=== PATIENT | male | born 1960 | race Caucasian/White ===

== ENCOUNTER 2017-10-13 05:24 | Inpatient (IN) | payer OTHER ==
[2017-10-12 16:01] VITALS: BMI 27.8
[~2017-10-13 05:24] MED LIST: BACITRACIN 50,000 UNITS VIAL TP ONE; BUPIVACAINE HCL/PF 0.5% (5MG/ML) 10 ML VIAL IJ ONE; GELATIN, ABSORBABLE 100 EACH SPONGE TP ONE; GENTAMICIN SO4 80 MG/2 ML VIAL IVPB ONE; LIDOCAINE 1%/EPI 1:100000 (20 ML MULTI DOSE VIAL) IJ ONE; THROMBIN (BOVINE) 5,000 UNIT VIAL TP ONE; ceFAZolin SODIUM 1 GM VIAL IVPB ONE
[2017-10-13] MEDS ORDERED: LIDOCAINE 1%/EPI 1:100000 (20 ML MULTI DOSE VIAL) ONE (10:55)
[2017-10-13] MEDS ORDERED: VANCOMYCIN 1,000 MG VIAL (RESTRICTED TO ID ONLY) ONE (10:55)
[2017-10-13] MEDS ORDERED: BUPIVACAINE HCL/PF 0.5% (5MG/ML) 10 ML VIAL ONE (10:56)
[2017-10-13] MEDS ORDERED: THROMBIN (BOVINE) 5,000 UNIT VIAL TP ONE ×2 (10:56→13:23)
[2017-10-13] MEDS ORDERED: GENTAMICIN SO4 80 MG/2 ML VIAL ONE ×2 (11:01→14:53)
[2017-10-13] MEDS ORDERED: ROCURONIUM BROMIDE 50 MG/5 ML VIAL ONE ×2 (11:31→12:46)
[2017-10-13] MEDS ORDERED: PROPOFOL 20 ML ONE ×4 (11:31)
[2017-10-13] MEDS ORDERED: fentaNYL CITRATE 250 MCG/5 ML VIAL ONE ×2 (11:31→12:49)
[2017-10-13] MEDS ORDERED: MIDAZOLAM HCL 2 MG/2 ML SINGLE DOSE VIAL ONE ×2 (11:31)
[2017-10-13] MEDS ORDERED: BACITRACIN 15 GM TUBE TOPICAL OINTMENT ONE (11:34)
[2017-10-13] MEDS ORDERED: LIDOCAINE 1%/EPI 1:100000 (20 ML MULTI DOSE VIAL) IJ ONE (12:40)
[2017-10-13] MEDS ORDERED: DEXAMETHASONE SOD PHOSPHATE 4 MG/1 ML VIAL ONE (12:42)
[2017-10-13] MEDS ORDERED: ceFAZolin SODIUM 1 GM VIAL ONE (12:42)
[2017-10-13] MEDS ORDERED: ceFAZolin SODIUM 1 GM VIAL IVPB ONE (12:42)
[2017-10-13] MEDS ORDERED: ONDANSETRON 4 MG/2 ML VIAL ONE ×2 (12:42→15:20)
[2017-10-13] MEDS ORDERED: MINERAL OIL/PETROLATUM,WHITE 3.5 GM TUBE ONE (12:42)
[2017-10-13] MEDS ORDERED: SEVOFLURANE 250 ML BTL ONE (12:53)
[2017-10-13] MEDS ORDERED: BUPIVACAINE HCL/PF 0.5% (5MG/ML) 10 ML VIAL IJ ONE (13:23)
[2017-10-13] MEDS ORDERED: BACITRACIN 50,000 UNITS VIAL TP ONE (13:23)
[2017-10-13] MEDS ORDERED: GENTAMICIN SO4 80 MG/2 ML VIAL IVPB ONE (13:23)
[2017-10-13] MEDS ORDERED: GELATIN, ABSORBABLE 100 EACH SPONGE TP ONE (13:23)
[2017-10-13] MEDS ORDERED: GLYCOPYRROLATE 0.2 MG/1 ML VIAL ONE (15:20)
[2017-10-13] MEDS ORDERED: NEOSTIGMINE METHYLSULFATE 0.5 MG/ML - 10 ML MDV ONE (15:20)
[2017-10-13] MEDS: LACTATED RINGERS SOLUTION 1,000 ML IV SCH ×2 (16:15→19:55)
--- NOTE | 2017-10-13 16:19 | OP ---
Operative Note - Note: Operative Date: 10/13/17 Pre-Operative Diagnosis: cervical stenosis, cervical kyphosis Operation: C2 thru C7 laminectomy with posterior fusion Surgeon: Chau Cabrera Algorithm Design Engineer: Yelitza Lin Anesthesiologist/SUPERVISOR BLOOMING MILL: Amanda Carney Anesthesia: General Estimated Blood Loss (mls): 300 Drains, Volume Out (mls): 400 (vences) Fluid Volume Replaced (mls): 2,900 Operative Report Dictated: Yes
[2017-10-13] MEDS ORDERED: ONDANSETRON 4 MG/2 ML VIAL IVPUSH PRN ×2 (16:20→16:31)
[2017-10-13] MEDS ORDERED: CYCLOBENZAPRINE HCL 5 MG TABLET PO PRN (16:31)
[2017-10-13] MEDS ORDERED: HYDROmorphone HCL CARPU-JECT 2 MG/1 ML DISP.SYRIN ONE (16:36)
[2017-10-13] MEDS ORDERED: LACTATED RINGERS SOLUTION 1,000 ML IV SCH (16:45)
[2017-10-13] MEDS: HYDROmorphone HCL CARPU-JECT 1 MG/1 ML DISP.SYRIN IVPUSH PRN ×2 (17:05→17:15)
[2017-10-13] MEDS: HYDROmorphone *PCA* 10MG/50ML DISP.SYRIN PCA SCH (17:19)
[2017-10-13] MEDS ORDERED: CYCLOBENZAPRINE HCL 10 MG TABLET (FP) PO PRN (19:56)
[2017-10-13] MEDS ORDERED: CEFAZOLIN 1 GM/D5W 50 ML IVPB SCH (21:00)
[2017-10-13] MEDS: PANTOPRAZOLE 20 MG TABLET (FP) PO SCH (21:07)
[2017-10-13] MEDS: CEFAZOLIN 1 GM PUSH 1 GM/10 ML DISP.SYRIN IVPUSH SCH (21:07)
[2017-10-13] MEDS: ATORVASTATIN CA 80 MG TABLET (FP) PO SCH (21:07)
[2017-10-13] MEDS: LISINOPRIL 20 MG TABLET (FP) PO SCH (21:07)
[2017-10-13] MEDS: AMITRIPTYLINE HCL 25 MG TABLET (FP) PO SCH (21:09)
[2017-10-13] MEDS: HEPARIN NA (PORCINE) 5,000 UNITS/ML 1ML VIAL SQ SCH (21:09)
[2017-10-13] MEDS: ACETAMINOPHEN 325 MG TABLET (FP) PO SCH (21:10)
[2017-10-14] MEDS ORDERED: diphenhydrAMINE HCL 25 MG CAPSULE (FP) PO PRN (01:55)
[2017-10-14] MEDS: CEFAZOLIN 1 GM PUSH 1 GM/10 ML DISP.SYRIN IVPUSH SCH ×2 (02:57→11:00)
[2017-10-14] MEDS: HEPARIN NA (PORCINE) 5,000 UNITS/ML 1ML VIAL SQ SCH ×2 (06:24→13:43)
[2017-10-14] MEDS: HYDROmorphone *PCA* 10MG/50ML DISP.SYRIN PCA SCH ×3 (06:29→16:04)
[2017-10-14] MEDS: LACTATED RINGERS SOLUTION 1,000 ML IV SCH ×3 (06:31→21:37)
[2017-10-14 08:11] LABS: BASOPHIL 0.3 % (0-2.0); MCH 30.5 pg (25.7-33.7); MCHC 34.2 g/dl (32.0-35.9); MEAN CELL VOLUME 89.2 fl (80-96); MEAN PLT VOLUME 8.9 fl (7.5-11.1); NEUTROPHILS 77.5 % (42.8-82.8); PLATELET COUNT 238 K/MM3 (134-434); RDW 12.5 % (11.9-15.9); WHITE BLOOD COUNT 14.6 K/mm3 (4.0-10.0)
[2017-10-14 08:22] LABS: ANION GAP 7 (8-16); CALCIUM 8.1 mg/dL (8.5-10.1); CO2 27 mmol/L (21-32); GLUCOSE,RANDOM 100 mg/dL (74-106)
[2017-10-14 08:25] LABS: CREATININE 0.8 mg/dL (0.7-1.3)
[2017-10-14] MEDS ORDERED: BENZOCAINE/MENTH/CETYLPYRD CL 1 EACH LOZENGE MM PRN (09:02)
[2017-10-14] MEDS ORDERED: PSEUDOEPHEDRINE HCL 30 MG TABLET PO PRN (09:04)
[2017-10-14] MEDS ORDERED: PT OWN MED DRAWER 7, Y5N ONE ×2 (09:21→21:33)
[2017-10-14] MEDS: ACETAMINOPHEN 325 MG TABLET (FP) PO SCH ×4 (09:28→21:36)
--- NOTE | 2017-10-14 09:31 | SURG ---
Surgery Carton Waxing Machine Operator Note Carton Waxing Machine Operator: Yelitza Lin PA-C Date of Service: 10/13/17 Diagnosis: cervical stenosis, cervcial kyphosis Procedure: C2-C7 laminectomy with posterior cervical fusion I was present for the entirety of the operative procedure. For further detail, please refer to operative report. Visit type - Case Type Case Type: Scheduled Admission - Emergency Emergency Visit: No - New patient This patient is new to me today: Yes Date on this admission: 10/13/17
--- NOTE | 2017-10-14 09:33 | PN ---
Progress Note (short form) - Note Progress Note: POD#1 No complaints of upper ext/lower ext tingling. He has some pain in his upper back. Vital Signs Period Temp Pulse Resp BP Sys/Antony Pulse Ox Last 24 Hr 98 F-99.4 F 81-100 10-20 125-170/74-94 97-100 NICOL-160ml serosangrenous Kuhn-1900ml, clear/yellow urine GEN: appears comfortable Neck: collar in place changed to regular from Tall [place]ain[place] J collar. Dressing c/d/ i with aquacel. Neuro: vacuum conditioner operator strength equal b/l, shoulder shrug equal b/l. 5/5 strength equal to upper ext b/l with flexion/extension LE: dorsi/plantar flexion 5/5 b/l, no calf tenderness or swelling noted b/l CBC, BMP 10/14/17 06:30 12/ 06:30 A/P: 57 yo male s/p C2-7 laminectomy with posterior spinal fusion Pt doing well this am, PT here for his therapy this am Sitting upright and eating his breakfast, collar in place Kuhn catheter removed this am Labs reviewed, cbc ordered for the am DVT ppx with TEDs/scd and heparin SQ
[2017-10-14] MEDS ORDERED: ACETAMINOPHEN 1000 MG/100 ML VIAL (NON FORMULARY) IVPB ONE (10:20)
--- NOTE | 2017-10-14 10:45 | PN ---
Progress Note, Physician Chief Complaint: Pt. having burning pain 10/10 in his neck, says FUSING MACHINE OPERATOR is not helping like yesterday. No GA complaints. - Current Medication List Current Medications: Active Medications Acetaminophen (Tylenol -) 650 mg PO QID [facility] Stop: 10/15/17 10:01 Last Admin: 10/14/17 09:28 Dose: 650 mg Acetaminophen (Ofirmev Injection -) 1,000 mg IVPB ONCE ONE Stop: 10/14/17 10:21 Amitriptyline HCl (Elavil -) 50 mg PO HS [facility] Last Admin: 10/13/17 21:09 Dose: 50 mg Atorvastatin Calcium (Lipitor -) 80 mg PO HS [facility] Last Admin: 10/13/17 21:07 Dose: 80 mg Benzocaine/Menthol (Cepacol Lozenge -) 1 each MM PRN PRN PRN Reason: SORE THROAT Calcium Carbonate (Calcium Carbonate -) 2,400 mg PO DAILY [facility] Cyclobenzaprine HCl (Flexeril -) 5 mg PO BID PRN PRN Reason: BACK PAIN Last Admin: 10/13/17 21:09 Dose: 5 mg Diphenhydramine HCl (Benadryl -) 50 mg PO HS PRN Last Admin: 10/14/17 02:04 Dose: 50 mg Heparin Sodium (Porcine) (Heparin -) 5,000 unit SQ TID [facility] Last Admin: 10/14/17 06:24 Dose: 5,000 unit Hydromorphone HCl (Dilaudid Database Software Technician -) 10 mg FUSING MACHINE OPERATOR FUSING MACHINE OPERATOR [facility] PRN Reason: Protocol Stop: 10/16/17 16:31 Lactated Ringer's (Lactated Ringers Solution) 1,000 mls @ 125 mls/hr IV ASDIR [facility] Last Admin: 10/14/17 06:31 Dose: 125 mls/hr Cefazolin Sodium (Ancef -) 1 gm in 10 mls @ 120 mls/hr IVPUSH Q8H-IV [facility] Stop: 10/14/17 17:59 Last Admin: 10/14/17 02:57 Dose: 120 mls/hr Lisinopril (Prinivil) 20 mg PO HS [facility] Last Admin: 10/13/17 21:07 Dose: 20 mg Ondansetron HCl (Zofran Injection) 4 mg IVPUSH Q6H PRN PRN Reason: NAUSEA AND/OR VOMITING Pantoprazole Sodium (Protonix -) 20 mg PO HS [facility] Last Admin: 10/13/17 21:07 Dose: 20 mg Pseudoephedrine HCl (Sudafed -) 60 mg PO DAILY PRN PRN Reason: allergies - Objective Vital Signs: Vital Signs Temperature 98.2 F 10/14/17 08:00 Pulse Rate 93 H 10/14/17 08:00 Respiratory Rate 18 10/14/17 08:00 Blood Pressure 137/80 10/14/17 08:00 O2 Sat by Pulse Oximetry (%) 99 10/14/17 08:59 Constitutional: Yes: Well Nourished, No Distress, Calm Neurological: Yes: WNL, Alert, Oriented ...Motor Strength: WNL Labs: CBC, BMP 10/14/17 06:30 10/14/17 06:30 Assessment/Plan POD#1 s/p C2-7 Cervical fusion under GA. Increase FUSING MACHINE OPERATOR dose to 0.4 q6 min lockout. Start Ofirmev 1 dose 6 hours after last oral tylenol. Will follow up tomorrow
--- NOTE | 2017-10-14 11:01 | HP ---
Admitting History and Physical - Primary Care Physician PCP: Leidy Calderon - Admission Chief Complaint: Cervical Spinal stenosis, s/p Laminectomy History of Present Illness: Mr Gonzalez is a pleasant 57 year old man that is a resident of [place], who came to [facility] for Neurosurgery consult and planned surgery with Chau James MD. He is S/P Laminectomy POD #1. History Source: Patient, Significant Other () Limitations to Obtaining History: Clinical Condition - Past Medical History Cardiovascular: Yes: HTN, Hyperlipdemia Gastrointestinal: Yes: GERD Musculoskeletal: Yes: Chronic low back pain, Other (Cervical spinal stenosis) - Past Surgical History Additional Past Surgical History: Rhinoplasty - Advance Directives Advance Directives: Yes: Health Care Proxy - Smoking History Smoking history: Never smoked Have you smoked in the past 12 months: No - Alcohol/Substance Use Hx Alcohol Use: Yes (rare) - Social History Usual Living Arrangement: Yes: With Spouse ADL: Independent History of Recent Travel: No Home Medications - Allergies Allergies/Adverse Reactions: Allergies Allergy/AdvReac Type Severity Reaction Status Date / Time iodine Allergy Severe Swelling Verified 10/12/17 15:56 - Home Medications Home Medications: Ambulatory Orders Amitriptyline HCl [Elavil -] 50 mg PO HS 10/12/17 Aspirin Coated [Ecotrin -] 81 mg PO HS 10/12/17 Atorvastatin Ca [Lipitor] 80 mg PO HS 10/12/17 Calcium Carbonate - 2,400 mg PO DAILY 10/12/17 Cholecalciferol (Vitamin D3) [Vitamin D3 -] 1,000 unit PO DAILY 10/12/17 Diphenhydramine [Benadryl -] 50 mg PO DAILY PRN 10/12/17 Flaxseed Oil [Flaxseed] 1,000 mg PO DAILY 10/12/17 Lisinopril [Prinivil] 20 mg PO HS 10/12/17 Omeprazole 20 mg PO HS 10/12/17 Pseudoephedrine HCl [Sudafed] 60 mg PO DAILY PRN 10/12/17 Tizanidine HCl 4 mg PO Q8H PRN 10/12/17 Tramadol HCl 50 mg PO BID PRN 10/12/17 Family Disease History - Family Disease History Family Disease History: Other: Father ([place], cardiac stents), Mother (COPD,HTN,HL) , Brother (2 brothers- no known medical history), Daughter (1 daughter, no known medical history) Review of Systems Findings/Remarks: sitting in chair, in severe pain, had the neck collar on. Pain improved upon removal of neck collar, ice applied WINDLASSER mildly effective - Review of Systems Constitutional: reports: No Symptoms Eyes: reports: No Symptoms HENT: reports: No Symptoms Neck: reports: Decreased ROM, Pain on Movement Cardiovascular: reports: No Symptoms Respiratory: reports: No Symptoms Gastrointestinal: reports: No Symptoms Genitourinary: reports: No Symptoms Breasts: reports: No Symptoms Reported Musculoskeletal: reports: No Symptoms Integumentary: reports: No Symptoms Neurological: reports: No Symptoms Endocrine: reports: No Symptoms Hematology/Lymphatic: reports: No Symptoms Psychiatric: reports: No Symptoms Pain Intensity: 9 (at the surgical site) Physical Examination Vital Signs: Vital Signs Temperature 98.2 F 10/14/17 08:00 Pulse Rate 93 H 10/14/17 08:00 Respiratory Rate 18 10/14/17 08:00 Blood Pressure 137/80 10/14/17 08:00 O2 Sat by Pulse Oximetry (%) 99 10/14/17 08:59 Constitutional: Yes: Well Nourished, No Distress, Calm Neck: Yes: Decreased ROM (s/p Laminectomy) Cardiovascular: Yes: Regular Rate and Rhythm Respiratory: Yes: Regular Gastrointestinal: Yes: Normal Bowel Sounds Musculoskeletal: Yes: WNL Extremities: Yes: WNL Edema: No Peripheral Pulses WNL: Yes Wound/Incision: Yes: Dressing Dry and Intact Neurological: Yes: Alert, Oriented Psychiatric: Yes: Alert, Oriented Labs: CBC, BMP 10/14/17 06:30 10/14/17 06:30 Imaging - Results Cat Scan: Report Reviewed Problem List - Problems (1) Cervical spinal stenosis Code(s): M48.02 - SPINAL STENOSIS, CERVICAL REGION (2) S/P laminectomy Assessment/Plan: -ice -WINDLASSER dosage adjusted by Anesthesia -Added gabapentin -tylenol -neck brace once pain is better controlled -Also on myscle relaxers PRN, would change to standing for now -will follow with Neurosurgery Code(s): Z98.890 - OTHER SPECIFIED POSTPROCEDURAL STATES (3) Leukocytosis Assessment/Plan: -likely post inflammatory response -repeat in AM Code(s): D72.829 - ELEVATED WHITE BLOOD CELL COUNT, UNSPECIFIED Assessment/Plan see problem list
[2017-10-14] MEDS: CALCIUM CARBONATE 650 MG TABLET PO SCH (11:39)
[2017-10-14] MEDS: GABAPENTIN 300 MG CAPSULE (FP) PO SCH ×2 (11:40→21:35)
[2017-10-14] MEDS: ATORVASTATIN CA 80 MG TABLET (FP) PO SCH (21:35)
[2017-10-14] MEDS: AMITRIPTYLINE HCL 25 MG TABLET (FP) PO SCH (21:35)
[2017-10-14] MEDS: CYCLOBENZAPRINE HCL 10 MG TABLET (FP) PO SCH (21:35)
[2017-10-14] MEDS: PANTOPRAZOLE 20 MG TABLET (FP) PO SCH (21:35)
[2017-10-14] MEDS: LISINOPRIL 20 MG TABLET (FP) PO SCH (21:36)
[2017-10-15] MEDS: GABAPENTIN 300 MG CAPSULE (FP) PO SCH ×3 (06:00→21:20)
[2017-10-15] MEDS: HEPARIN NA (PORCINE) 5,000 UNITS/ML 1ML VIAL SQ SCH ×4 (06:00→21:20)
[2017-10-15] MEDS: LACTATED RINGERS SOLUTION 1,000 ML IV SCH ×3 (06:16→16:54)
[2017-10-15 08:16] LABS: BASOPHIL 0.4 % (0-2.0); EOSINOPHIL 0.1 % (0-4.5); MCH 30.9 pg (25.7-33.7); MEAN CELL VOLUME 90.8 fl (80-96); MEAN PLT VOLUME 8.9 fl (7.5-11.1); NEUTROPHILS 76.3 % (42.8-82.8); PLATELET COUNT 192 K/MM3 (134-434); RDW 12.6 % (11.9-15.9); WHITE BLOOD COUNT 13.9 K/mm3 (4.0-10.0)
[2017-10-15 08:27] LABS: ALBUMIN 3.2 g/dl (3.4-5.0); ANION GAP 6 (8-16); CALCIUM 8.9 mg/dL (8.5-10.1); CO2 32 mmol/L (21-32); GLUCOSE,RANDOM 111 mg/dL (74-106); SGOT/AST 49 U/L (15-37); SGPT/ALT 33 U/L (12-78)
[2017-10-15 08:30] LABS: ALK PHOS 85 U/L (45-117); BILIRUBIN,TOTAL 1.9 mg/dL (0.2-1.0); TOT PROT 5.9 g/dl (6.4-8.2)
--- NOTE | 2017-10-15 09:10 | PN ---
Progress Note (short form) - Note Progress Note: Anesthesia Post op Pt seen and examined S:awake and alert O: Vital Signs Temperature 98.2 F 10/15/17 09:05 Pulse Rate 108 H 10/15/17 09:05 Respiratory Rate 18 10/15/17 09:05 Blood Pressure 98/51 10/15/17 09:05 O2 Sat by Pulse Oximetry (%) 98 10/14/17 21:00 CBC, BMP 10/15/17 06:00 10/15/17 06:00 A/P:s/p cervical fusion Doing well post op pain controlled but wants to keep ORACLE IDENTITY MANAGEMENT CONSULTANT for pain control Continue current care Raghav Foley MD
[2017-10-15] MEDS: CALCIUM CARBONATE 650 MG TABLET PO SCH (10:26)
[2017-10-15] MEDS: CYCLOBENZAPRINE HCL 10 MG TABLET (FP) PO SCH ×2 (10:36→21:20)
[2017-10-15] MEDS: HYDROmorphone *PCA* 10MG/50ML DISP.SYRIN PCA SCH ×2 (10:36→21:55)
[2017-10-15] MEDS: ACETAMINOPHEN 325 MG TABLET (FP) PO SCH (10:37)
--- NOTE | 2017-10-15 13:49 | PN ---
Progress Note, Physician Chief Complaint: SITTING IN CHAIR NAD VISITOR INFORMATION ASSISTANT IN USE THIS IS MY FIRST ENCOUNTER WITH THIS PATIENT CHART AND NOTES REVIEWED - Current Medication List Current Medications: Active Medications Amitriptyline HCl (Elavil -) 50 mg PO HS [facility] Last Admin: 10/14/17 21:35 Dose: 50 mg Atorvastatin Calcium (Lipitor -) 80 mg PO HS [facility] Last Admin: 10/14/17 21:35 Dose: 80 mg Benzocaine/Menthol (Cepacol Lozenge -) 1 each MM PRN PRN PRN Reason: SORE THROAT Calcium Carbonate (Calcium Carbonate -) 2,400 mg PO DAILY [facility] Last Admin: 10/15/17 10:26 Dose: 2,400 mg Cyclobenzaprine HCl (Flexeril -) 5 mg PO BID [facility] Last Admin: 10/15/17 10:36 Dose: Not Given Diphenhydramine HCl (Benadryl -) 50 mg PO HS PRN Last Admin: 10/14/17 02:04 Dose: 50 mg Gabapentin (Neurontin -) 300 mg PO TID [facility] Last Admin: 10/15/17 06:00 Dose: 300 mg Heparin Sodium (Porcine) (Heparin -) 5,000 unit SQ TID [facility] Last Admin: 10/15/17 06:15 Dose: 5,000 unit Hydromorphone HCl (Dilaudid Aircraft Power Plant Assembler -) 10 mg VISITOR INFORMATION ASSISTANT VISITOR INFORMATION ASSISTANT [facility] PRN Reason: Protocol Stop: 10/16/17 16:31 Last Admin: 10/15/17 10:36 Dose: 10 mg Lactated Ringer's (Lactated Ringers Solution) 1,000 mls @ 125 mls/hr IV ASDIR [facility] Last Admin: 10/15/17 06:16 Dose: 125 mls/hr Lisinopril (Prinivil) 20 mg PO [facility] Last Admin: 10/14/17 21:36 Dose: 20 mg Ondansetron HCl (Zofran Injection) 4 mg IVPUSH Q6H PRN PRN Reason: NAUSEA AND/OR VOMITING Pantoprazole Sodium (Protonix -) 20 mg PO HS [facility] Last Admin: 10/14/17 21:35 Dose: 20 mg Pseudoephedrine HCl (Sudafed -) 60 mg PO DAILY PRN PRN Reason: allergies - Objective Vital Signs: Vital Signs Temperature 98.2 F 10/15/17 09:05 Pulse Rate 108 H 10/15/17 10:36 Respiratory Rate 18 10/15/17 10:36 Blood Pressure 98/51 10/15/17 10:36 O2 Sat by Pulse Oximetry (%) 98 10/14/17 21:00 Constitutional: Yes: No Distress, Mild Distress Eyes: Yes: WNL HENT: Yes: WNL Neck: Yes: WNL Cardiovascular: Yes: WNL Respiratory: Yes: WNL Gastrointestinal: Yes: WNL Genitourinary: Yes: WNL Musculoskeletal: Yes: Back Pain, Joint Stiffness, Muscle Pain, Muscle Weakness Extremities: Yes: WNL Edema: No Peripheral Pulses WNL: Yes Integumentary: Yes: WNL Wound/Incision: Yes: Dressing Dry and Intact Neurological: Yes: Pre-Existing Deficit ...Motor Strength: LUE, LLE, RUE, RLE Psychiatric: Yes: WNL Labs: CBC, BMP 10/15/17 06:00 10/15/17 06:00 Problem List - Problems (1) Cervical spinal stenosis Code(s): M48.02 - SPINAL STENOSIS, CERVICAL REGION (2) S/P laminectomy Code(s): Z98.890 - OTHER SPECIFIED POSTPROCEDURAL STATES (3) Urinary retention Code(s): R33.9 - RETENTION OF URINE, UNSPECIFIED Assessment/Plan PAIN CONTROL DVT PROPHYLAXIS PT EVAL [facility] RE[facility]ED FOR RETENTION
[2017-10-15] MEDS: TAMSULOSIN HCL 0.4 MG CAP.ER.24H (FP) PO SCH (17:54)
[2017-10-15] MEDS: AMITRIPTYLINE HCL 25 MG TABLET (FP) PO SCH (21:20)
[2017-10-15] MEDS: LISINOPRIL 20 MG TABLET (FP) PO SCH (21:20)
[2017-10-15] MEDS: PANTOPRAZOLE 20 MG TABLET (FP) PO SCH (21:20)
[2017-10-15] MEDS: ATORVASTATIN CA 80 MG TABLET (FP) PO SCH (21:20)
[2017-10-16] MEDS: ACETAMINOPHEN 325 MG TABLET (FP) PO PRN ×3 (02:37→19:55)
[2017-10-16] MEDS: HEPARIN NA (PORCINE) 5,000 UNITS/ML 1ML VIAL SQ SCH ×3 (06:08→21:28)
[2017-10-16] MEDS: GABAPENTIN 300 MG CAPSULE (FP) PO SCH ×3 (06:08→21:27)
[2017-10-16] MEDS: CALCIUM CARBONATE 650 MG TABLET PO SCH (09:58)
[2017-10-16] MEDS: TAMSULOSIN HCL 0.4 MG CAP.ER.24H (FP) PO SCH (09:58)
[2017-10-16] MEDS: CYCLOBENZAPRINE HCL 10 MG TABLET (FP) PO SCH ×2 (09:58→21:27)
[2017-10-16] MEDS: HYDROmorphone *PCA* 10MG/50ML DISP.SYRIN PCA SCH (10:29)
--- NOTE | 2017-10-16 11:06 | PN ---
Progress Note (short form) - Note Progress Note: POD #3 - s/p cervical fusion. On dilaudid MECHANICAL ENERGY ENGINEER for post-op pain management. Overall, pain control has been good. Will discontinue MECHANICAL ENERGY ENGINEER today and order po oxycodone. Continue current care.
[2017-10-16] MEDS: oxyCODONE HCL 5 MG TABLET PO PRN ×3 (11:43→19:54)
--- NOTE | 2017-10-16 12:01 | PN ---
Progress Note, Physician Chief Complaint: AWAKE DROWSY BEDSIDE PRINCESS STILL MAINTAINED - Current Medication List Current Medications: Active Medications Acetaminophen (Tylenol -) 650 mg PO Q8H PRN PRN Reason: FEVER OR PAIN Last Admin: 10/16/17 11:44 Dose: 650 mg Amitriptyline HCl (Elavil -) 50 mg PO [facility] Last Admin: 10/15/17 21:20 Dose: 50 mg Atorvastatin Calcium (Lipitor -) 80 mg PO [facility] Last Admin: 10/15/17 21:20 Dose: 80 mg Benzocaine/Menthol (Cepacol Lozenge -) 1 each MM PRN PRN PRN Reason: SORE THROAT Calcium Carbonate (Calcium Carbonate -) 2,400 mg PO DAILY [facility] Last Admin: 10/16/17 09:58 Dose: 2,400 mg Cyclobenzaprine HCl (Flexeril -) 5 mg PO BID [facility] Last Admin: 10/16/17 09:58 Dose: 5 mg Diphenhydramine HCl (Benadryl -) 50 mg PO HS [facility] Last Admin: 10/14/17 02:04 Dose: 50 mg Gabapentin (Neurontin -) 300 mg PO TID [facility] Last Admin: 10/16/17 06:08 Dose: 300 mg Heparin Sodium (Porcine) (Heparin -) 5,000 unit SQ TID [facility] Last Admin: 10/16/17 06:08 Dose: 5,000 unit Lactated Ringer's (Lactated Ringers Solution) 1,000 mls @ 42 mls/hr IV ASDIR [facility] Last Admin: 10/15/17 16:54 Dose: 42 mls/hr Lisinopril (Prinivil) 20 mg PO [facility] Last Admin: 10/15/17 21:20 Dose: 20 mg Ondansetron HCl (Zofran Injection) 4 mg IVPUSH Q6H PRN PRN Reason: NAUSEA AND/OR VOMITING Oxycodone HCl (Roxicodone -) 5 mg PO Q4H PRN PRN Reason: PAIN Last Admin: 10/16/17 11:43 Dose: 5 mg Oxycodone HCl (Roxicodone -) 10 mg PO Q4H PRN PRN Reason: PAIN Pantoprazole Sodium (Protonix -) 20 mg PO [facility] Last Admin: 10/15/17 21:20 Dose: 20 mg Pseudoephedrine HCl (Sudafed -) 60 mg PO DAILY PRN PRN Reason: allergies Tamsulosin HCl (Flomax -) 0.4 mg PO DAILY@0830 [facility] Last Admin: 10/16/17 09:58 Dose: 0.4 mg - Objective Vital Signs: Vital Signs Temperature 99.7 F H 10/16/17 09:12 Pulse Rate 106 H 10/16/17 11:29 Respiratory Rate 20 10/16/17 11:29 Blood Pressure 116/60 10/16/17 11:29 O2 Sat by Pulse Oximetry (%) 96 10/15/17 21:00 Constitutional: Yes: Mild Distress Eyes: Yes: WNL HENT: Yes: WNL Neck: Yes: Tenderness Cardiovascular: Yes: WNL Respiratory: Yes: WNL Gastrointestinal: Yes: WNL Genitourinary: Yes: Sánchez Present Musculoskeletal: Yes: Muscle Weakness Extremities: Yes: Other Edema: No Peripheral Pulses WNL: Yes Integumentary: Yes: WNL Wound/Incision: Yes: Dressing Dry and Intact Neurological: Yes: Pre-Existing Deficit ...Motor Strength: LUE, LLE, RUE, RLE Psychiatric: Yes: Other Labs: CBC, BMP 10/15/17 06:00 10/15/17 06:00 Problem List - Problems (1) Cervical spinal stenosis Code(s): M48.02 - SPINAL STENOSIS, CERVICAL REGION (2) S/P laminectomy Code(s): Z98.890 - OTHER SPECIFIED POSTPROCEDURAL STATES (3) Urinary retention Code(s): R33.9 - RETENTION OF URINE, UNSPECIFIED Assessment/Plan PAIN CONTROL PER ANESTHESIA REMOTE MORTGAGE UNDERWRITER STOPPED OXYCODONE PRN DVT PROPHYLAXIS PT EVAL INCENTIVE SPIROMETRY [facility] RE[facility]ED FOR RETENTION FLOMAX STARTED FOR URINARY RETENTION
[2017-10-16] MEDS: LACTATED RINGERS SOLUTION 1,000 ML IV SCH (17:06)
--- NOTE | 2017-10-16 19:19 | PN ---
Progress Note (short form) - Note Progress Note: Patient resting in bed. Afebrile now, however, earlier fever noted. Cultures negative to date. Patient describes interval improvement in back and leg pains after surgery and incisional/drain site pain is abating. Now off BARTENDER MANAGER with some increase in pain. Will re-evaluate in AM. Patient will have vences removed at 0600 and nursing will check a post void residual. Will likely have PA team remove NICOL in morning. If patient continues to be afebrile and his pain is well controlled with oral medications, will plan for discharge soon. All questions answered.
[2017-10-16] MEDS: AMITRIPTYLINE HCL 25 MG TABLET (FP) PO SCH (21:27)
[2017-10-16] MEDS: ATORVASTATIN CA 80 MG TABLET (FP) PO SCH (21:27)
[2017-10-16] MEDS: LISINOPRIL 20 MG TABLET (FP) PO SCH (21:28)
[2017-10-16] MEDS: PANTOPRAZOLE 20 MG TABLET (FP) PO SCH (21:28)
[2017-10-17] MEDS: oxyCODONE HCL 5 MG TABLET PO PRN ×5 (01:58→19:15)
[2017-10-17] MEDS: HEPARIN NA (PORCINE) 5,000 UNITS/ML 1ML VIAL SQ SCH ×3 (05:43→22:08)
[2017-10-17] MEDS: GABAPENTIN 300 MG CAPSULE (FP) PO SCH ×3 (05:43→22:08)
[2017-10-17] MEDS: ACETAMINOPHEN 325 MG TABLET (FP) PO PRN (05:44)
[2017-10-17] MEDS: ACETAMINOPHEN 325 MG TABLET (FP) PO SCH (07:42)
[2017-10-17] MEDS: TAMSULOSIN HCL 0.4 MG CAP.ER.24H (FP) PO SCH (08:38)
[2017-10-17] MEDS: CALCIUM CARBONATE 650 MG TABLET PO SCH (09:03)
[2017-10-17] MEDS: CYCLOBENZAPRINE HCL 10 MG TABLET (FP) PO SCH ×2 (09:05→22:07)
--- NOTE | 2017-10-17 10:35 | PN ---
Progress Note, Physician Chief Complaint: s/p cervical spine laminectomy History of Present Illness: NAD, in bed Pain 04/23 -no complains of tingling or numbness at this time, intermittent -no BM since admission -Walked with physical therapy -Vences discontinue, urinated post vences -Surgical site drain intact, still draining moderate serosanguiness fluid. - Current Medication List Current Medications: Active Medications Acetaminophen (Tylenol -) 650 mg PO Q8H PRN PRN Reason: FEVER OR PAIN Last Admin: 10/17/17 05:44 Dose: 650 mg Amitriptyline HCl (Elavil -) 50 mg PO HS [facility] Last Admin: 10/16/17 21:27 Dose: 50 mg Atorvastatin Calcium (Lipitor -) 80 mg PO HS [facility] Last Admin: 10/16/17 21:27 Dose: 80 mg Benzocaine/Menthol (Cepacol Lozenge -) 1 each MM PRN PRN PRN Reason: SORE THROAT Calcium Carbonate (Calcium Carbonate -) 2,400 mg PO DAILY [facility] Last Admin: 10/17/17 09:03 Dose: 2,400 mg Cyclobenzaprine HCl (Flexeril -) 5 mg PO BID [facility] Last Admin: 10/17/17 09:05 Dose: 5 mg Diphenhydramine HCl (Benadryl -) 50 mg PO HS [facility] Last Admin: 10/14/17 02:04 Dose: 50 mg Gabapentin (Neurontin -) 300 mg PO TID [facility] Last Admin: 10/17/17 05:43 Dose: 300 mg Heparin Sodium (Porcine) (Heparin -) 5,000 unit SQ TID [facility] Last Admin: 10/17/17 05:43 Dose: 5,000 unit Lactated Ringer's (Lactated Ringers Solution) 1,000 mls @ 42 mls/hr IV ASDIR [facility] Last Admin: 10/16/17 17:06 Dose: Not Given Lisinopril (Prinivil) 20 mg PO HS [facility] Last Admin: 10/16/17 21:28 Dose: 20 mg Ondansetron HCl (Zofran Injection) 4 mg IVPUSH Q6H PRN PRN Reason: NAUSEA AND/OR VOMITING Oxycodone HCl (Roxicodone -) 5 mg PO Q4H PRN PRN Reason: PAIN Last Admin: 10/16/17 11:43 Dose: 5 mg Oxycodone HCl (Roxicodone -) 10 mg PO Q4H PRN PRN Reason: PAIN Last Admin: 10/17/17 05:45 Dose: 10 mg Pantoprazole Sodium (Protonix -) 20 mg PO HS [facility] Last Admin: 10/16/17 21:28 Dose: 20 mg Pseudoephedrine HCl (Sudafed -) 60 mg PO DAILY PRN PRN Reason: allergies Tamsulosin HCl (Flomax -) 0.4 mg PO DAILY@0830 [facility] Last Admin: 10/17/17 08:38 Dose: 0.4 mg - Objective Vital Signs: Vital Signs Temperature 98.3 F 10/17/17 05:32 Pulse Rate 98 H 10/17/17 05:32 Respiratory Rate 20 10/17/17 05:32 Blood Pressure 135/80 10/17/17 05:32 O2 Sat by Pulse Oximetry (%) 95 10/16/17 21:00 Constitutional: Yes: Well Nourished, No Distress, Calm Neck: Yes: Decreased ROM (s/p cervical laminectomy) Cardiovascular: Yes: Regular Rate and Rhythm Respiratory: Yes: Regular Gastrointestinal: Yes: Normal Bowel Sounds, Soft Musculoskeletal: Yes: WNL Extremities: Yes: WNL Edema: No Peripheral Pulses WNL: Yes Neurological: Yes: Alert, Oriented Psychiatric: Yes: Alert, Oriented Labs: CBC, BMP 10/15/17 06:00 10/15/17 06:00 Problem List - Problems (1) Cervical spinal stenosis Code(s): M48.02 - SPINAL STENOSIS, CERVICAL REGION (2) S/P laminectomy Assessment/Plan: -ice -gabapentin -tylenol -neck brace -on muscle relaxers standing order -will follow with Neurosurgery -seen by Physical therapy, self ambulatory with minimal assistance Code(s): Z98.890 - OTHER SPECIFIED POSTPROCEDURAL STATES (3) Leukocytosis Assessment/Plan: -likely post inflammatory response -repeat labs today Code(s): D72.829 - ELEVATED WHITE BLOOD CELL COUNT, UNSPECIFIED (4) Constipation Assessment/Plan: -takes Metamucil outpatient -miralax x 1 -Metamucil daily Code(s): K59.00 - CONSTIPATION, UNSPECIFIED (5) Urinary retention Assessment/Plan: -vences discontinued -voided spontaneously -on Tamsulosin Code(s): R33.9 - RETENTION OF URINE, UNSPECIFIED Assessment/Plan see problem list -Likely D/C in AM if cleared by Neurosurgery
[2017-10-17] MEDS ORDERED: POLYETHYLENE GLYCOL 3350 119 GM BTL PO ONE (10:37)
[2017-10-17 11:21] LABS: BASOPHIL 0.8 % (0-2.0); EOSINOPHIL 3.1 % (0-4.5); MCH 30.6 pg (25.7-33.7); MCHC 34.3 g/dl (32.0-35.9); MEAN CELL VOLUME 89.2 fl (80-96); MEAN PLT VOLUME 8.4 fl (7.5-11.1); NEUTROPHILS 61.8 % (42.8-82.8); PLATELET COUNT 218 K/MM3 (134-434); RDW 12.5 % (11.9-15.9); WHITE BLOOD COUNT 9.5 K/mm3 (4.0-10.0)
[2017-10-17 11:35] LABS: ALBUMIN 3.1 g/dl (3.4-5.0); ANION GAP 6 (8-16); CALCIUM 8.4 mg/dL (8.5-10.1); CO2 33 mmol/L (21-32); CREATININE 0.7 mg/dL (0.7-1.3); GLUCOSE,RANDOM 115 mg/dL (74-106); SGOT/AST 64 U/L (15-37); SGPT/ALT 39 U/L (12-78)
[2017-10-17 11:37] LABS: ALK PHOS 84 U/L (45-117); BILIRUBIN,TOTAL 1.2 mg/dL (0.2-1.0); TOT PROT 6.1 g/dl (6.4-8.2)
--- NOTE | 2017-10-17 14:56 | PN ---
Progress Note (short form) - Note Progress Note: Patient seen at bedside. Posterior cervical NICOL drain removed with tip fully intact. 20cc of serosanginous d/c in bulb at time of removal. The patient tolerated the procedure well and the drain site was dressed with a 4x4 and op site.
--- NOTE | 2017-10-17 18:23 | PN ---
Progress Note (short form) - Note Progress Note: Patient continues to have some discomfort since his PROFESSOR OF PRACTICE was discontinued, but is otherwise doing well. Incisional pain is abating and patient is ambulating with assistance. NICOL removed. All questions answered. PLAN - check CBC in AM - follow cultures/Tmax - continue Cervical collar - continue Physical Therapy - check voiding after vences removal - continue pain medication - If patient doing well in AM, will consider discharge
[2017-10-17] MEDS ORDERED: diazePAM 5 MG TABLET PO ONE (21:45)
[2017-10-17] MEDS: ATORVASTATIN CA 80 MG TABLET (FP) PO SCH (22:08)
[2017-10-17] MEDS: LISINOPRIL 20 MG TABLET (FP) PO SCH (22:08)
[2017-10-17] MEDS: PANTOPRAZOLE 20 MG TABLET (FP) PO SCH (22:08)
[2017-10-17] MEDS: AMITRIPTYLINE HCL 25 MG TABLET (FP) PO SCH (22:11)
[2017-10-18] MEDS: oxyCODONE HCL 5 MG TABLET PO PRN ×2 (03:47→09:23)
[2017-10-18] MEDS ORDERED: PSEUDOEPHEDRINE HCL 60 MG TABLET PO PRN (04:24)
[2017-10-18] MEDS: HEPARIN NA (PORCINE) 5,000 UNITS/ML 1ML VIAL SQ SCH ×3 (05:45→21:04)
[2017-10-18] MEDS: GABAPENTIN 300 MG CAPSULE (FP) PO SCH ×3 (05:45→21:04)
--- NOTE | 2017-10-18 09:17 | PN ---
Progress Note, Physician History of Present Illness: C/O NECK PAIN AND SPASM - Current Medication List Current Medications: Active Medications Acetaminophen (Tylenol -) 650 mg PO Q8H PRN PRN Reason: FEVER OR PAIN Last Admin: 10/17/17 05:44 Dose: 650 mg Amitriptyline HCl (Elavil -) 50 mg PO [facility] Last Admin: 10/17/17 22:11 Dose: 50 mg Atorvastatin Calcium (Lipitor -) 80 mg PO [facility] Last Admin: 10/17/17 22:08 Dose: 80 mg Benzocaine/Menthol (Cepacol Lozenge -) 1 each MM PRN PRN PRN Reason: SORE THROAT Calcium Carbonate (Calcium Carbonate -) 2,400 mg PO DAILY [facility] Last Admin: 10/17/17 09:03 Dose: 2,400 mg Cyclobenzaprine HCl (Flexeril -) 10 mg PO TID [facility] Diphenhydramine HCl (Benadryl -) 50 mg PO HS PRN Last Admin: 10/14/17 02:04 Dose: 50 mg Gabapentin (Neurontin -) 300 mg PO TID [facility] Last Admin: 10/18/17 05:45 Dose: 300 mg Heparin Sodium (Porcine) (Heparin -) 5,000 unit SQ TID [facility] Last Admin: 10/18/17 05:45 Dose: 5,000 unit Lactated Ringer's (Lactated Ringers Solution) 1,000 mls @ 42 mls/hr IV ASDIR [facility] Last Admin: 10/16/17 17:06 Dose: Not Given Lisinopril (Prinivil) 20 mg PO [facility] Last Admin: 10/17/17 22:08 Dose: 20 mg Ondansetron HCl (Zofran Injection) 4 mg IVPUSH Q6H PRN PRN Reason: NAUSEA AND/OR VOMITING Oxycodone HCl (Roxicodone -) 5 mg PO Q4H PRN PRN Reason: PAIN Last Admin: 10/17/17 15:47 Dose: 5 mg Oxycodone HCl (Roxicodone -) 10 mg PO Q4H PRN PRN Reason: PAIN Last Admin: 10/18/17 03:47 Dose: 10 mg Pantoprazole Sodium (Protonix -) 20 mg PO [facility] Last Admin: 10/17/17 22:08 Dose: 20 mg Pseudoephedrine HCl (Sudafed -) 60 mg PO DAILY PRN PRN Reason: allergies Psyllium Hydrophilic Mucilloid (Metamucil (Sugar-Free) -) 5.85 gm PO DAILY [facility] Tamsulosin HCl (Flomax -) 0.4 mg PO DAILY@0830 [facility] Last Admin: 10/17/17 08:38 Dose: 0.4 mg - Objective Vital Signs: Vital Signs Temperature 98.7 F 10/18/17 05:46 Pulse Rate 106 H 10/18/17 05:46 Respiratory Rate 19 10/18/17 05:46 Blood Pressure 149/88 10/18/17 05:46 O2 Sat by Pulse Oximetry (%) 96 10/17/17 20:31 Cardiovascular: Yes: Regular Rate and Rhythm Respiratory: Yes: Regular, CTA Bilaterally Gastrointestinal: Yes: Normal Bowel Sounds, Soft Neurological: Yes: Other (NECK WITH LIMITED ROM DRESSING INTACT) Labs: CBC, BMP 10/17/17 10:45 10/17/17 10:45 Problem List - Problems (1) Cervical spinal stenosis Assessment/Plan: INCREASE FLEXERIL 10 TID PAIN MEDS ORDERED PT Code(s): M48.02 - SPINAL STENOSIS, CERVICAL REGION (2) Leukocytosis Assessment/Plan: FOLLOW UP CBC STABLE Laboratory Tests 10/17/17 10:45 WBC 9.5 D Hgb 11.1 L Code(s): D72.829 - ELEVATED WHITE BLOOD CELL COUNT, UNSPECIFIED (3) S/P laminectomy Assessment/Plan: PER N/S Code(s): Z98.890 - OTHER SPECIFIED POSTPROCEDURAL STATES
[2017-10-18 09:21] LABS: BASOPHIL 0.9 % (0-2.0); EOSINOPHIL 2.4 % (0-4.5); MCH 30.7 pg (25.7-33.7); MCHC 34.4 g/dl (32.0-35.9); MEAN CELL VOLUME 89.2 fl (80-96); NEUTROPHILS 67.1 % (42.8-82.8); PLATELET COUNT 268 K/MM3 (134-434); RDW 12.4 % (11.9-15.9); WHITE BLOOD COUNT 10.6 K/mm3 (4.0-10.0)
[2017-10-18] MEDS: PSYLLIUM 5.85 GM PACKET PO SCH (09:23)
[2017-10-18] MEDS: CALCIUM CARBONATE 650 MG TABLET PO SCH (09:23)
[2017-10-18] MEDS: TAMSULOSIN HCL 0.4 MG CAP.ER.24H (FP) PO SCH (09:23)
[2017-10-18 10:07] LABS: ALBUMIN 3.1 g/dl (3.4-5.0); ALK PHOS 97 U/L (45-117); ANION GAP 7 (8-16); BILIRUBIN,TOTAL 1.3 mg/dL (0.2-1.0); CALCIUM 8.5 mg/dL (8.5-10.1); CO2 28 mmol/L (21-32); CREATININE 0.8 mg/dL (0.7-1.3); GLUCOSE,RANDOM 128 mg/dL (74-106); SGOT/AST 48 U/L (15-37); SGPT/ALT 38 U/L (12-78); TOT PROT 6.7 g/dl (6.4-8.2)
[2017-10-18] MEDS: oxyCODONE HCL 10 MG SUSTAINED ACTING TABLET PO SCH ×2 (13:18→21:03)
[2017-10-18] MEDS: SENNOSIDES 8.6MG TABLET (FP) PO SCH ×2 (13:18→21:04)
[2017-10-18] MEDS: CEFAZOLIN 1 GM PUSH 1 GM/10 ML DISP.SYRIN IVPUSH SCH ×2 (14:26→17:30)
[2017-10-18] MEDS: CYCLOBENZAPRINE HCL 10 MG TABLET (FP) PO SCH ×2 (14:27→21:04)
--- NOTE | 2017-10-18 15:23 | PN ---
Progress Note (short form) - Note Progress Note: Pt seen and examined with Dr. Cabrera today. He states that he is having pain and feels stiff in his upper shoulder/neck. He complains of constipation. Vital Signs Period Temp Pulse Resp BP Sys/Antony Pulse Ox Last 24 Hr 98.7 F-99.9 F 96-106 19-20 132-149/75-88 96 GEN: appears somewhat uncomfortable Neck: posterior dressing c/d/i. Dressing removed and mild erythema to skin. No drainage. Reapplied dermabond and aquacel. CBC, BMP 10/18/17 09:15 10/18/17 09:15 A/P: C2-C7 posterior cervical fusion, POD#5 Will increase pain management, oxycontin 10mg BID with oxycodone for break thru Senna stool softners, prune juice/dulcolax suppository as needed IV abx Kefzol Q8 hours OOB and ambulate, will need rolling walker assist device upon discharge
[2017-10-18] MEDS ORDERED: BISACODYL 10 MG SUPP.RECT RC PRN (15:28)
[2017-10-18] MEDS: ACETAMINOPHEN 325 MG TABLET (FP) PO PRN (17:05)
[2017-10-18] MEDS ORDERED: PT OWN MED DRAWER 7, Y5N ONE (17:30)
[2017-10-18] MEDS: AMITRIPTYLINE HCL 25 MG TABLET (FP) PO SCH (21:02)
[2017-10-18] MEDS: PANTOPRAZOLE 20 MG TABLET (FP) PO SCH (21:04)
[2017-10-18] MEDS: LISINOPRIL 20 MG TABLET (FP) PO SCH (21:04)
[2017-10-18] MEDS: ATORVASTATIN CA 80 MG TABLET (FP) PO SCH (21:04)
[2017-10-19] MEDS: CEFAZOLIN 1 GM PUSH 1 GM/10 ML DISP.SYRIN IVPUSH SCH ×2 (01:33→10:47)
[2017-10-19] MEDS: ACETAMINOPHEN 325 MG TABLET (FP) PO PRN (04:44)
[2017-10-19] MEDS: oxyCODONE HCL 5 MG TABLET PO PRN ×3 (04:47→17:41)
[2017-10-19] MEDS: CYCLOBENZAPRINE HCL 10 MG TABLET (FP) PO SCH ×2 (06:00→14:47)
[2017-10-19] MEDS: HEPARIN NA (PORCINE) 5,000 UNITS/ML 1ML VIAL SQ SCH ×2 (06:00→14:47)
[2017-10-19] MEDS: GABAPENTIN 300 MG CAPSULE (FP) PO SCH ×2 (06:00→14:47)
[2017-10-19] MEDS ORDERED: PT OWN MED DRAWER 7, Y5N ONE (08:59)
[2017-10-19] MEDS: oxyCODONE HCL 10 MG SUSTAINED ACTING TABLET PO SCH (09:01)
[2017-10-19] MEDS: PSYLLIUM 5.85 GM PACKET PO SCH (09:02)
[2017-10-19] MEDS: TAMSULOSIN HCL 0.4 MG CAP.ER.24H (FP) PO SCH (09:02)
[2017-10-19] MEDS: CALCIUM CARBONATE 650 MG TABLET PO SCH (09:02)
[2017-10-19] MEDS: SENNOSIDES 8.6MG TABLET (FP) PO SCH (09:02)
--- NOTE | 2017-10-19 13:50 | PN ---
Progress Note (short form) - Note Progress Note: Pt seen and examined with Dr. Wallace today. The patient states that his pain is better. Vital Signs Period Temp Pulse Resp BP Sys/Antony Pulse Ox Last 24 Hr 97.8 F-100.3 F 92-100 18-20 114-147/60-83 96-97 GEN: appears comfortable Neck: inc c/d/i with dermabond. No drainage noted, minimal erythema. LE: no calf tenderness or swelling noted b/l A/P: C2-C7 posterior cervical fusion, POD#6 D/w Dr. Cabrera and plan for discharge today. SCripts for oxycontin/percocet for break thru pain. Oral keflex. Maintain dry, dressing and wear cervical collar at all times 23 out of 24 hours.
--- NOTE | 2017-10-19 14:07 | PN ---
Progress Note, Physician Chief Complaint: s/p cervical spine laminectomy History of Present Illness: NAD, pain improved discharge today as per neurosurgery with pain meds and oral abx - Current Medication List Current Medications: Active Medications Acetaminophen (Tylenol -) 650 mg PO Q8H PRN PRN Reason: FEVER OR PAIN Last Admin: 10/19/17 04:44 Dose: 650 mg Amitriptyline HCl (Elavil -) 50 mg PO [facility] Last Admin: 10/18/17 21:02 Dose: 50 mg Atorvastatin Calcium (Lipitor -) 80 mg PO HS [facility] Last Admin: 10/18/17 21:04 Dose: 80 mg Benzocaine/Menthol (Cepacol Lozenge -) 1 each MM PRN PRN PRN Reason: SORE THROAT Bisacodyl (Dulcolax Suppository -) 10 mg RC PRN PRN PRN Reason: CONSTIPATION Last Admin: 10/19/17 09:07 Dose: 10 mg Calcium Carbonate (Calcium Carbonate -) 2,400 mg PO DAILY [facility] Last Admin: 10/19/17 09:02 Dose: 2,400 mg Cyclobenzaprine HCl (Flexeril -) 10 mg PO TID [facility] Last Admin: 10/19/17 06:00 Dose: 10 mg Diphenhydramine HCl (Benadryl -) 50 mg PO HS PRN Last Admin: 10/14/17 02:04 Dose: 50 mg Gabapentin (Neurontin -) 300 mg PO TID [facility] Last Admin: 10/19/17 06:00 Dose: 300 mg Heparin Sodium (Porcine) (Heparin -) 5,000 unit SQ TID [facility] Last Admin: 10/19/17 06:00 Dose: 5,000 unit Lisinopril (Prinivil) 20 mg PO HS [facility] Last Admin: 10/18/17 21:04 Dose: 20 mg Ondansetron HCl (Zofran Injection) 4 mg IVPUSH Q6H PRN PRN Reason: NAUSEA AND/OR VOMITING Oxycodone HCl (Roxicodone -) 5 mg PO Q4H PRN PRN Reason: PAIN Last Admin: 10/18/17 09:23 Dose: 5 mg Oxycodone HCl (Roxicodone -) 10 mg PO Q4H PRN PRN Reason: PAIN Last Admin: 10/19/17 12:50 Dose: 10 mg Oxycodone HCl (Oxycontin -) 10 mg PO BID [facility] Last Admin: 10/19/17 09:01 Dose: 10 mg Pantoprazole Sodium (Protonix -) 20 mg PO HS [facility] Last Admin: 10/18/17 21:04 Dose: 20 mg Pseudoephedrine HCl (Sudafed -) 60 mg PO DAILY PRN PRN Reason: allergies Psyllium Hydrophilic Mucilloid (Metamucil (Sugar-Free) -) 5.85 gm PO DAILY [facility] Last Admin: 10/19/17 09:02 Dose: 5.85 gm Senna (Senna -) 1 tab PO BID [facility] Last Admin: 10/19/17 09:02 Dose: 1 tab Tamsulosin HCl (Flomax -) 0.4 mg PO DAILY@0830 [facility] Last Admin: 10/19/17 09:02 Dose: 0.4 mg - Objective Vital Signs: Vital Signs Temperature 97.8 F 10/19/17 08:06 Pulse Rate 92 H 10/19/17 08:06 Respiratory Rate 18 10/19/17 08:06 Blood Pressure 128/60 10/19/17 08:06 O2 Sat by Pulse Oximetry (%) 97 10/19/17 09:00 Constitutional: Yes: Well Nourished, No Distress, Calm Cardiovascular: Yes: Regular Rate and Rhythm Respiratory: Yes: Regular Musculoskeletal: Yes: WNL Extremities: Yes: WNL Edema: No Peripheral Pulses WNL: Yes Neurological: Yes: Alert, Oriented Psychiatric: Yes: Alert, Oriented Labs: CBC, BMP 10/18/17 09:15 10/18/17 09:15 Problem List - Problems (1) Cervical spinal stenosis Code(s): M48.02 - SPINAL STENOSIS, CERVICAL REGION (2) S/P laminectomy Assessment/Plan: -ice -gabapentin -tylenol -neck brace -on muscle relaxers standing order -will follow with Neurosurgery -seen by Physical therapy, self ambulatory with minimal assistance Code(s): Z98.890 - OTHER SPECIFIED POSTPROCEDURAL STATES (3) Leukocytosis Assessment/Plan: -likely post inflammatory response Code(s): D72.829 - ELEVATED WHITE BLOOD CELL COUNT, UNSPECIFIED (4) Constipation Assessment/Plan: -takes Metamucil outpatient -dulcolax -Metamucil daily Code(s): K59.00 - CONSTIPATION, UNSPECIFIED Assessment/Plan see problem list
[2017-10-19 14:47] VITALS: BP 135/84; PULSE 98; TEMP 99.8
== END 2017-10-19 18:56 | disposition home or self-care (01) | DRG 321 ==
LOC: JSAMEDAYSX 05:24 → EDSTATUS 12:00 → J6S 19:20
PROVIDERS: ADMIT Neurological Surgery; ATTEND Neurological Surgery
PROC: 0RG20AJ Fusion of 2 or more Cervical Vertebral Joints with Interbody Fusion Device, Posterior Approach, Anterior Column, Open Approach (ICD-10-PCS; 2017-10-13)
PROC: 0RG2071 Fusion of 2 or more Cervical Vertebral Joints with Autologous Tissue Substitute, Posterior Approach, Posterior Column, Open Approach (ICD-10-PCS; 2017-10-13)
PROC: 00JV0ZZ Inspection of Spinal Cord, Open Approach (ICD-10-PCS; 2017-10-13)
PROC: 0HX6XZZ Transfer Back Skin, External Approach (ICD-10-PCS; 2017-10-13)
PROC: 0RB30ZZ Excision of Cervical Vertebral Disc, Open Approach (ICD-10-PCS; principal; 2017-10-13 12:00)
DX: M50.01 Cervical disc disorder with myelopathy, high cervical region (principal); M50.022 Cervical disc disorder at C5-C6 level with myelopathy; M50.023 Cervical disc disorder at C6-C7 level with myelopathy; I10 Essential (primary) hypertension; E78.5 Hyperlipidemia, unspecified; K21.9 Gastro-esophageal reflux disease without esophagitis; M40.292 Other kyphosis, cervical region; M54.5 Low back pain; M48.02 Spinal stenosis, cervical region; R33.9 Retention of urine, unspecified; K59.00 Constipation, unspecified; D72.829 Elevated white blood cell count, unspecified; M40.40 Postural lordosis, site unspecified
CPT/HCPCS: 36415; 72125-TC; 76000-TC; 80048; 80053; 85025; 87040; 87086; 94760; 97116-GP; 97161-GP; J1644